=== PATIENT | female | born 1970 | race Caucasian/White ===

== ENCOUNTER → 2020-03-18 | Day surgery (SDC) | payer OTHER | END | disposition home or self-care (01) | LOC: ADM 03-16 07:00 → CIR.AMB 07:00 → ADM 07:00 → CIR.AMB 08:00 | PROVIDERS: ATTEND Obstetrics & Gynecology | DX: N84.0 Polyp of corpus uteri (principal); Z20.828 Contact with and (suspected) exposure to other viral communicable diseases ==